=== PATIENT | male | born 1970 | race African-American/Black ===

== ENCOUNTER 2017-12-06 14:28 | Emergency (ER) | payer SELFPAY ==
[~2017-12-06] VITALS: Ht 177.8 cm; Wt 85.0 kg
[2017-12-06 14:32] VITALS: BP 105/80
== END 2017-12-06 21:00 | disposition left against medical advice (07) ==
LOC: ER 14:28
DX: Z53.21 Procedure and treatment not carried out due to patient leaving prior to being seen by health care provider (principal)